=== PATIENT | female | born 1975 | race Caucasian/White ===

== ENCOUNTER 2021-04-26 17:16 | Emergency (ER) | payer BC ==
[2021-04-27 16:57] LABS: SARS-CoV-2 PCR by NAA DETECTED (NotDetected)
== END 2021-04-26 22:20 | disposition home or self-care (01) ==
LOC: CSHERS 17:16
DX: U07.1 COVID-19 (principal); I10 Essential (primary) hypertension; E78.5 Hyperlipidemia, unspecified; E11.9 Type 2 diabetes mellitus without complications
CPT/HCPCS: 99283; U0003; U0005

== ENCOUNTER 2022-12-07 06:28 | Emergency (ER) | payer BC ==
[2022-12-07 07:56] LABS: #Basophils 0.1 10x3/uL (0.0-0.2); #Eosinphils 0.1 10x3/uL (0.0-0.5); #Monocytes 0.6 10x3/uL (0.0-1.1); #Neutrophils 7.4 10x3/uL (1.5-8.4); %Basophils 0.5 % (0.0-2.0); %Eosinophils 1.1 % (0.0-6.0); %Lymphocytes 19.9 % (18.0-47.0); %Monocytes 5.7 % (0.0-10.0); %Neutrophils 72.4 % (40.0-75.0); Hematocrit 42.3 % (34.9-44.5); Hemoglobin 13.9 g/dL (12.0-15.5); Mean Corpuscular HGB CONC 32.9 g/dL (32.0-36.0); Mean Corpuscular Hemoglobin 28.6 pg (27.0-33.0); Platelet Count 259 10x3/uL (150-450); RBC Distribution Width 12.3 % (11.5-14.5); Red Blood Cell (RBC) Count 4.86 10x6/uL (3.90-5.03); White Blood Cell (WBC) Count 10.2 10x3/uL (3.5-10.5)
[2022-12-07] MEDS ORDERED: Ketorolac Tromethamine 30 MG/ML VIAL ONE (08:00)
[2022-12-07 08:14] LABS: ALT (SGPT) 31 U/L (8-55); AST (SGOT) 21 U/L (5-34); Alkaline Phosphatase 66 U/L (40-110); Anion Gap 14 mmol/L (10-20); BUN (Urea Nitrogen) 10 mg/dL (7.0-18.7); Bilirubin, Total 0.9 mg/dL (0.2-1.2); Calc. Creatinine Clearance 0 mL/min (70-130); Calcium 9.4 mg/dL (7.8-10.44); Carbon Dioxide 27 mmol/L (22-29); Chloride 100 mmol/L (98-107); Estimated GFR 86; Globulin 4.1 g/dL (2.4-3.5); Glucose 250 mg/dL (70-105); Potassium 4.7 mmol/L (3.5-5.1); Protein, Total 8.1 g/dL (6.0-8.3); Sodium 136 mmol/L (136-145)
[2022-12-07] MEDS ORDERED: cefTRIAXone (ROCEPHIN) 2 GM VIAL ONE (09:46)
[2022-12-07] MEDS ORDERED: Iopamidol 300 61% 100 ML VIAL FS ONE (10:31)
== END 2022-12-07 11:55 | disposition home or self-care (01) ==
LOC: CSHERS 06:28
DX: K04.7 Periapical abscess without sinus (principal); K02.9 Dental caries, unspecified; E11.9 Type 2 diabetes mellitus without complications; E78.5 Hyperlipidemia, unspecified; I10 Essential (primary) hypertension
CPT/HCPCS: 70487; 80053; 83605; 85025; 96365; 96375; J0696; J1885; Q9967

== ENCOUNTER 2024-04-18 08:58 | Outpatient (CLI) | payer BC | END 2024-04-18 08:59 | disposition home or self-care (01) | LOC: CSHMAMMO 08:58 | PROVIDERS: ATTEND Family Medicine | DX: Z12.31 Encounter for screening mammogram for malignant neoplasm of breast (principal); Z80.3 Family history of malignant neoplasm of breast | CPT/HCPCS: 77063; 77067 ==

== ENCOUNTER 2024-12-03 11:48 | Emergency (ER) | payer BC ==
[2024-12-03] MEDS ORDERED: Metoclopramide HCl 10 MG (2 mL) VIAL ONE (12:19)
[2024-12-03 12:42] LABS: #Basophils 0.04 10x3/uL (0.0-0.2); #Eosinophils 0.16 10x3/uL (0.0-0.5); #Monocytes 0.60 10x3/uL (0.0-1.1); #Neutrophils 6.99 10x3/uL (1.5-8.4); %Basophils 0.4 % (0.0-2.0); %Eosinophils 1.4 % (0.0-6.0); %Lymphocytes 29.6 % (18.0-47.0); %Monocytes 5.4 % (0.0-10.0); %Neutrophils 62.8 % (40.0-75.0); Hematocrit 43.0 % (34.9-44.5); Hemoglobin 13.8 g/dL (12.0-15.5); Mean Corpuscular Hemoglobin 27.7 pg (27.0-33.0); Mean Corpuscular Volume 86.2 fL (81.6-98.3); Platelet Count 333 10x3/uL (150-450); Red Blood Cell (RBC) Count 4.99 10x6/uL (3.90-5.03); White Blood Cell (WBC) Count 11.12 10x3/uL (3.5-10.5)
[2024-12-03 12:56] LABS: ALT (SGPT) 47 U/L (Less than 34); AST (SGOT) 40 U/L (11-34); Albumin 4.3 g/dL (3.1-4.5); Alkaline Phosphatase 69 U/L (40-110); Anion Gap 14 mmol/L (10-20); BUN (Urea Nitrogen) 22 mg/dL (7.0-18.7); Bilirubin, Total 0.7 mg/dL (0.3-1.2); Calc. Creatinine Clearance 0 mL/min (70-130); Calcium 10.0 mg/dL (7.8-10.44); Carbon Dioxide 30 mmol/L (22-29); Chloride 95 mmol/L (98-107); Globulin 4.6 g/dL (2.4-3.5); Glucose 174 mg/dL (70-105); Lipase 26 U/L (8-78); Potassium 4.3 mmol/L (3.5-5.1); Sodium 135 mmol/L (136-145)
[2024-12-03 13:37] LABS: Glucose, Urine (Dipstick) Normal (Negative); Leukocyte Negative (Negative); Protein, Urine (Dipstick) 30 mg/dl (Neg-Trace); Specific Gravity, Urine 1.020 (1.005-1.030)
[2024-12-03 13:51] LABS: Bacteria/HPF 2+ HPF (None Seen); CAUTI Indications for Culture Dysuria,urgency,freq; Mucous/LPF Rare LPF (<2+); RBC/HPF None Seen HPF (0-3); WBC/HPF 0-3 HPF (0-3)
[2024-12-03 13:52] LABS: Urine Culture Reflex No No
== END 2024-12-03 14:05 | disposition home or self-care (01) ==
LOC: CSHERS 11:48
DX: R11.2 Nausea with vomiting, unspecified (principal); N17.9 Acute kidney failure, unspecified; R80.9 Proteinuria, unspecified; E11.9 Type 2 diabetes mellitus without complications; E78.5 Hyperlipidemia, unspecified; I10 Essential (primary) hypertension
CPT/HCPCS: 80053; 81001; 83690; 85025; 87428; J2765